=== PATIENT | male | born 1980 | race Caucasian/White ===

== ENCOUNTER 2017-09-08 22:29 | Emergency (ER) | payer BC ==
[2017-09-08] MEDS: LIDOCAINE 1% (MDV) 10 ML INJ INJ (23:00)
== END 2017-09-08 23:00 | disposition home or self-care (01) ==
LOC: FTE 22:29
DX: S01.111A Laceration without foreign body of right eyelid and periocular area, initial encounter (principal); W22.8XXA Striking against or struck by other objects, initial encounter; Y92.9 Unspecified place or not applicable
CPT/HCPCS: 12011; 99283-25